=== PATIENT | female | born 1960 | race Caucasian/White ===

== ENCOUNTER 2016-08-02 08:55 | Emergency (ER) | payer OTHER ==
[~2016-08-02] VITALS: Ht 157.5 cm; Wt 90.0 kg
[~2016-08-02 08:55] MED LIST: CLINDAMYCIN HC300 MG PO; FIORICET 50-301 EACH PO; Flagyl PO; LORTAB 5-325 M1 EACH PO; MOTRIN800 MG PO; NAPROSYN500 MG PO; NO MEDS; NOHOMEMEDS; PEPCID40 MG PO; PROTONIX40 MG PO; VALIUM2 MG PO
[2016-08-02] MEDS ORDERED: CLEOCIN300 MG PO (09:11)
[2016-08-02] MEDS ORDERED: TYLENOL WITH C1 EACH PO (09:11)
[2016-08-02] MEDS ORDERED: ALEVE220 M2 PO (09:14)
[2016-08-02 09:15] VITALS: BP 00/00
== END 2016-08-02 09:23 | disposition home or self-care (01) ==
LOC: EME 08:55
DX: K04.7 Periapical abscess without sinus (principal); Z87.891 Personal history of nicotine dependence
CPT/HCPCS: 99281; 99283

== ENCOUNTER 2017-10-08 08:58 | Emergency (ER) | payer OTHER ==
[~2017-10-08] VITALS: Ht 157.5 cm; Wt 90.5 kg
[~2017-10-08 08:58] MED LIST changes: +ALEVE220 M2 PO; +CLEOCIN300 MG PO; +TYLENOL WITH C1 EACH PO
[2017-10-08] MEDS ORDERED: IBUPROFEN800 MG PO (09:42)
[2017-10-08] MEDS ORDERED: PEN-VEE K,VEET500 MG PO (09:42)
[2017-10-08 10:10] VITALS: BP 112/73
== END 2017-10-08 10:39 | disposition home or self-care (01) ==
LOC: EME 08:58
DX: K04.7 Periapical abscess without sinus (principal); K03.81 Cracked tooth; F17.200 Nicotine dependence, unspecified, uncomplicated; Z71.6 Tobacco abuse counseling
CPT/HCPCS: 99281; 99283; J1885

== ENCOUNTER 2017-10-09 00:25 | Day surgery (SDC) | payer OTHER ==
[~2017-10-09] VITALS: Ht 157.5 cm; Wt 99.5 kg
[~2017-10-09 00:25] MED LIST changes: +IBUPROFEN800 MG PO; +PEN-VEE K,VEET500 MG PO
[2017-10-09 00:59] LABS: HEMOGLOBIN 13.3 G/DL (11.9-15.5); MCH 31.5 PG (29.0-34.0); MCHC 34.1 G/DL (30.0-36.0); MCV 92.4 FL (83-99); PLATELET COUNT 212 K/uL (156-360); RBC DIS.WIDTH-CV 13.3 % (11.8-14.6); RBC DIS.WIDTH-SD 45.5 % (39-53); RED BLOOD COUNT 4.22 M/uL (3.80-5.20); WHITE BLOOD COUNT 13.2 K/uL (4.1-10.2)
[2017-10-09 01:12] LABS: ALBUMIN 4.1 g/dL (3.2-4.8); CHLORIDE 106 mEq/L (99-109); POTASSIUM 3.7 mEq/L (3.7-5.4); SODIUM 139 mEq/L (136-147)
[2017-10-09 01:14] LABS: GLUCOSE 164 mg/dL (70-99)
[2017-10-09 01:15] LABS: TOTAL PROTEIN 7.2 g/dL (6.4-8.3)
[2017-10-09 01:16] LABS: TOTAL BILIRUBIN 0.4 mg/dL (0.0-1.0)
[2017-10-09 01:18] LABS: ALKALINE PHOSPHATASE 104 IU/L (3-129); CREATININE 0.8 mg/dL (0.6-1.3); GFR ESTIMATE (CALCULATED) > 59 mL/min/
[2017-10-09 01:19] LABS: UREA NITROGEN (BUN) 15 mg/dL (9-23)
[2017-10-09 01:20] LABS: AST (GOT) 38 IU/L (2-34)
[2017-10-09 01:21] LABS: ALT (GPT) 36 IU/L (3-49)
[2017-10-09 01:27] LABS: QUANTITATIVE HCG < 4.0 MIU/ML
[2017-10-09 02:11] LABS: APPEARANCE SL.HAZY ((CLEAR)); BILIRUBIN NEGATIVE; BLOOD SMALL; COLOR YELLOW ((YELLOW)); GLUCOSE (STRIP) 50; KETONES NEGATIVE; LEUKOCYTES NEGATIVE; NITRITE NEGATIVE; PROTEIN (STRIP) 30; SPECIFIC GRAVITY 1.026 (1.000-1.030)
[2017-10-09 02:22] LABS: BASOPHIL (%) 0.2 % (0-1); EOSINOPHIL (%) 0 % (0-5); IMMATURE GRANULOCYTE (%) 0.4 % (0.0-0.7); LYMPHOCYTE (%) 7.3 % (15-42); MONOCYTE (%) 6.4 % (3-12); MONOCYTE COUNT 0.8 K/uL (0-0.8); NEUTROPHIL (%) 85.7 % (45-76); NEUTROPHIL COUNT 11.3 K/uL (1.8-6.4)
[2017-10-09 02:24] LABS: BACTERIA RARE /HPF; EPITHELIAL CELLS RARE /HPF; MUCUS TRACE /LPF; UCUL ADDED? NO; WHITE BLOOD CELLS 0-5 /HPF (0-5)
[2017-10-09 09:50] VITALS: BP 109/57
[2017-10-09 12:08] VITALS: BP 92/52
[2017-10-09 16:43] VITALS: BP 105/58
[2017-10-09 19:35] VITALS: BP 107/66
[2017-10-10 00:18] VITALS: BP 109/65
[2017-10-10 03:54] VITALS: BP 102/64
[2017-10-10 08:06] VITALS: BP 113/71
== END 2017-10-10 09:59 | disposition home or self-care (01) ==
LOC: EME 00:25 → SDC 06:55 → 2SOUTH 08:26 → ENRESERV 08:31 → 2EASTP 09:26
PROC: 0DTJ4ZZ Resection of Appendix, Percutaneous Endoscopic Approach (ICD-10-PCS; principal; 2017-10-09)
DX: K35.80 Unspecified acute appendicitis (principal)
CPT/HCPCS: 74177; 80053; 81003; 83605; 84702; 85025; 85027; 87040; 88304; 93005; 99281; 99285; G0378; J0330; J0690; J1100; J1885; J2250; J2405; J2710; J3010; J7030; J7120; S0020; S0074